=== PATIENT | male | born 1950 | race Caucasian/White ===

== ENCOUNTER 2024-10-08 06:54 | Day surgery (SDC) | payer MEDICARE, OTHER ==
[2024-10-08] MEDS: Sodium Chloride 0.9% 10 ML Syringe FLUSH PRN (08:30)
== END 2024-10-08 09:00 | disposition home or self-care (01) ==
LOC: JP.SDS 06:54
PROVIDERS: ATTEND Ophthalmology
DX: H25.11 Age-related nuclear cataract, right eye (principal); Z88.0 Allergy status to penicillin
CPT/HCPCS: 00142-QZ; V2632

== ENCOUNTER 2024-10-29 07:52 | Day surgery (SDC) | payer MEDICARE, OTHER ==
[2024-10-29] MEDS: Sodium Chloride 0.9% 10 ML Syringe FLUSH ONE (08:26)
== END 2024-10-29 09:53 | disposition home or self-care (01) ==
LOC: JP.SDS 07:52
PROVIDERS: ATTEND Ophthalmology
DX: H25.12 Age-related nuclear cataract, left eye (principal); I10 Essential (primary) hypertension; E78.5 Hyperlipidemia, unspecified; E66.9 Obesity, unspecified; Z88.0 Allergy status to penicillin
CPT/HCPCS: 66984; V2632